=== PATIENT | male | born 1990 | race Caucasian/White ===

== ENCOUNTER → 2023-08-31 08:11 | Outpatient (REF) | payer BC, SELFPAY ==
[2023-08-31 08:50] LABS: % Basophils 0.3 % (0-2); % Eosinophils 1.8 % (0-6); % Immature Granulocytes 0.3 % (0-0.5); % Lymphocytes 12.7 % (20.5-51.1); % Monocytes 11.3 % (1.7-9.3); % Neutrophils 73.6 % (42.2-75.2); Absolute Eosinophils 0.1 10^3/uL (0-0.7); Absolute Lymphocytes 0.8 10^3/uL (1.2-3.4); Absolute Monocytes 0.7 10^3/uL (0.1-0.6); Absolute Neutrophils 4.8 10^3/uL (1.4-6.5); Hematocrit 39.6 % (39.0-52.0); Hemoglobin 14.4 g/dL (13.0-18.0); Mean Corp Hgb Conc. 36.4 g/dL (33.0-37.0); Mean Corpuscular Hgb 30.4 pg (27.0-31.0); Mean Corpuscular Volume 83.5 fL (80.0-94.0); Mean Platelet Volume 9.6 fL (7.4-10.4); Nucleated Red Blood Cells % 0 % (-); Platelet Count 165 10^3/uL (130-400); Red Blood Cell Count 4.74 10^6/uL (4.70-6.10); Red Cell Dist. Width 12.8 % (11.5-14.5); White Blood Cell Count 6.5 10^3/uL (4.8-10.8)
[2023-08-31 10:41] LABS: ALT (SGPT) 28 U/L (0-50); AST (SGOT) 25 U/L (17-59); Albumin 4.4 g/dl (3.5-5.0); Alkaline Phosphatase 49 U/L (38-126); Blood Urea Nitrogen 19 mg/dl (9-20); Calcium 9.4 mg/dl (8.4-10.2); Carbon Dioxide 29 mmol/L (22-30); Chloride 101 mmol/L (98-107); Glucose 90 mg/dl (70-99); HDL Cholesterol 55 mg/dl; LDL Cholesterol, Calculated 79 mg/dl; Potassium 3.9 mmol/L (3.5-5.1); Sodium 138 mmol/L (135-145); Total Bilirubin 2.1 mg/dl (0.2-1.3); Total Cholesterol 181 mg/dl (50-199); Triglyceride 237 mg/dl (10-149); Uric Acid 5.8 mg/dl (3.5-8.5); Very Low Density Lipoprotein 47 mg/dl (0-30); eGFR > 60.00
== END ==
LOC: REG 08:11
PROVIDERS: ATTENDING PHYSICIAN Internal Medicine
DX: M79.674 Pain in right toe(s) (principal); Z13.220 Encounter for screening for lipoid disorders
CPT/HCPCS: 36415; 73660; 80053; 80061; 84550; 85025

== ENCOUNTER → 2024-04-10 09:52 | Outpatient (REF) | payer BC, SELFPAY ==
[2024-04-10 10:58] LABS: % Basophils 0.8 % (0-2); % Eosinophils 1.2 % (0-6); % Immature Granulocytes 0.3 % (0-0.5); % Lymphocytes 22.5 % (20.5-51.1); % Monocytes 8.3 % (1.7-9.3); % Neutrophils 66.9 % (42.2-75.2); Absolute Basophils 0.1 10^3/uL (0-0.2); Absolute Eosinophils 0.1 10^3/uL (0-0.7); Absolute Lymphocytes 1.5 10^3/uL (1.2-3.4); Absolute Monocytes 0.6 10^3/uL (0.1-0.6); Absolute Neutrophils 4.5 10^3/uL (1.4-6.5); Hematocrit 41.9 % (39.0-52.0); Mean Corp Hgb Conc. 35.8 g/dL (33.0-37.0); Mean Corpuscular Hgb 29.6 pg (27.0-31.0); Mean Corpuscular Volume 82.8 fL (80.0-94.0); Mean Platelet Volume 9.5 fL (7.4-10.4); Nucleated Red Blood Cells % 0 % (-); Platelet Count 193 10^3/uL (130-400); Red Blood Cell Count 5.06 10^6/uL (4.70-6.10); Red Cell Dist. Width 13.1 % (11.5-14.5); White Blood Cell Count 6.7 10^3/uL (4.8-10.8)
[2024-04-10 11:15] LABS: Erythrocyte Sed Rate 7 mm/hour (0-20)
[2024-04-10 12:06] LABS: ALT (SGPT) 25 U/L (0-50); AST (SGOT) 30 U/L (17-59); Albumin 4.9 g/dl (3.5-5.0); Alkaline Phosphatase 44 U/L (38-126); Blood Urea Nitrogen 15 mg/dl (9-20); Calcium 9.9 mg/dl (8.4-10.2); Carbon Dioxide 27 mmol/L (22-30); Chloride 102 mmol/L (98-107); Creatine Phosphokinase 96 U/L (55-170); Glucose 93 mg/dl (70-99); Potassium 4.6 mmol/L (3.5-5.1); Sodium 139 mmol/L (135-145); Total Protein 7.3 g/dl (6.3-8.2)
[2024-04-10 12:24] LABS: C-Reactive Protein < 5.00 mg/L (0.0-10.00)
[2024-04-10 12:45] LABS: eGFR > 60.00
[2024-04-10 12:59] LABS: Uric Acid 9.5 mg/dl (3.5-8.5)
[2024-04-10 15:01] LABS: Rheumatoid Agglutinin Less Than 10 IU (<10 IU)
[2024-04-10 15:35] LABS: Urine Uric Acid 65.8 mg/dl
[2024-04-11 18:18] LABS: ds-DNA Ab, IgG Reflex To Titer 5 IU (0-24)
[2024-04-11 18:59] LABS: CCP Antibody IgG/IgA 4 Units (0-19)
[2024-04-11 20:45] LABS: ANA, IgG Reflex to HEp-2 None Detected (None Detected)
[2024-04-12 00:12] LABS: HLA-B27 Negative (Negative)
[2024-04-12 01:03] LABS: Smith/RNP (ENA), IgG 2 Units (0-19)
[2024-04-12 01:59] LABS: Centromere Antibody 0 AU/mL (0-40); Jo-1 Antibodies 1 AU/mL (0-40); SSA 52 (Ro)(ENA) Ab, IgG 1 AU/mL (0-40); SSA 60 (Ro)(ENA) Ab, IgG 1 AU/mL (0-40); SSB (La)(ENA) Ab, IgG 0 AU/mL (0-40); Scleroderma Antibody (Scl-70) 1 AU/mL (0-40)
== END ==
LOC: RAD 09:52
PROVIDERS: ATTENDING PHYSICIAN Physician Assistant; FAMILY PHYSICIAN Internal Medicine
DX: M10.9 Gout, unspecified (principal); L60.8 Other nail disorders; M06.4 Inflammatory polyarthropathy; M79.671 Pain in right foot; R21 Rash and other nonspecific skin eruption; R50.9 Fever, unspecified
CPT/HCPCS: 36415; 73630; 80053; 82550; 83516; 84550; 85025; 85652; 86038; 86140; 86200; 86225; 86235; 86430; 86812

== ENCOUNTER → 2024-06-30 10:03 | Outpatient (REF) | payer BC, SELFPAY ==
[2024-06-30 10:47] LABS: % Basophils 0.2 % (0-2); % Eosinophils 0.1 % (0-6); % Immature Granulocytes 2.1 % (0-0.5); % Lymphocytes 17.3 % (20.5-51.1); % Monocytes 8.2 % (1.7-9.3); % Neutrophils 72.1 % (42.2-75.2); Absolute Immature Granulocytes 0.2 10^3/uL (0-0.05); Absolute Lymphocytes 1.5 10^3/uL (1.2-3.4); Absolute Monocytes 0.7 10^3/uL (0.1-0.6); Absolute Neutrophils 6.2 10^3/uL (1.4-6.5); Hematocrit 41.6 % (39.0-52.0); Hemoglobin 14.7 g/dL (13.0-18.0); Mean Corp Hgb Conc. 35.3 g/dL (33.0-37.0); Mean Corpuscular Hgb 30.4 pg (27.0-31.0); Mean Corpuscular Volume 86.1 fL (80.0-94.0); Mean Platelet Volume 9.5 fL (7.4-10.4); Nucleated Red Blood Cells % 0 % (-); Platelet Count 206 10^3/uL (130-400); Red Blood Cell Count 4.83 10^6/uL (4.70-6.10); Red Cell Dist. Width 13.2 % (11.5-14.5); White Blood Cell Count 8.7 10^3/uL (4.8-10.8)
[2024-06-30 11:15] LABS: ALT (SGPT) 42 U/L (0-50); AST (SGOT) 28 U/L (17-59); Albumin 4.6 g/dl (3.5-5.0); Alkaline Phosphatase 44 U/L (38-126); Blood Urea Nitrogen 15 mg/dl (9-20); Calcium 10.3 mg/dl (8.4-10.2); Carbon Dioxide 27 mmol/L (22-30); Chloride 105 mmol/L (98-107); Glucose 104 mg/dl (70-99); Potassium 4.2 mmol/L (3.5-5.1); Sodium 142 mmol/L (135-145); Total Bilirubin 0.7 mg/dl (0.2-1.3); Total Protein 7.1 g/dl (6.3-8.2); eGFR > 60.00
[2024-06-30 11:51] LABS: Uric Acid 5.7 mg/dl (3.5-8.5)
== END ==
LOC: REG 10:03
PROVIDERS: ATTENDING PHYSICIAN Student in an Organized Health Care Education/Training Program
DX: L60.8 Other nail disorders (principal); M10.9 Gout, unspecified; M79.671 Pain in right foot; R21 Rash and other nonspecific skin eruption; R50.9 Fever, unspecified
CPT/HCPCS: 36415; 80053; 84550; 85025